=== PATIENT | female | born 1955 | race Caucasian/White ===

== ENCOUNTER 2019-01-19 09:59 | Emergency (ER) | payer BC ==
--- NOTE | 2019-01-19 10:14 | UC ---
Lower Extremity/Ankle HPI - HPI Summary HPI Summary: 63 yo female presents with right hip pain for the last 2-3 months. She tells me that over this time she has noticed right hip joint pain radiating into her right groin and anterior right leg. Pain is worse with hip flexion and with going up stairs. She has been taking naproxen over the last 3-4 days with excellent relief of discomfort. She has been doing physical therapy, which she feels makes her pain worse. She denies specific injury. Denies numbness or tingling. No saddle anesthesia or loss of bowel/bladder control. No dysuria. No back pain. - History of Current Complaint Stated Complaint: RT LEG PAIN Time Seen by Provider: 01/19/19 10:14 Hx Obtained From: Patient Onset/Duration: Gradual Onset Severity Initially: Moderate Severity Currently: Moderate Pain Intensity: 6 Pain Scale Used: 0-10 Numeric Aggravating Factor(s): Standing, Ambulation Alleviating Factor(s): Rest, OTC Meds Able to Bear Weight: Yes - Allergies/Home Medications Allergies/Adverse Reactions: Allergies Allergy/AdvReac Type Severity Reaction Status Date / Time Penicillins Allergy Rash Verified 01/19/19 10:25 Sulfa (Sulfonamide AdvReac Nausea And Verified 01/19/19 10:25 Antibiotics) Vomiting Home Medications: Home Medications 5htp 01/19/19 [History] Acetaminophen [Tylenol] 2 tab PO BID PRN 01/19/19 [History Confirmed 01/19/19] Ascorbic Acid TAB* [Vitamin C TAB*] 01/19/19 [History] Cod Liver Oil 01/19/19 [History] Ibuprofen TAB* [Advil TAB*] 2 tab PO Q6H PRN 01/19/19 [History Confirmed ] Magnesium 01/19/19 [History] NK [No Home Medications Reported] 01/19/19 [History Confirmed 01/19/19] Naproxen Sodium [Naproxen 220 mg] 2 tab PO BID PRN 01/19/19 [History Confirmed 01/19/19] Potassium 01/19/19 [History] Prasterone (Dhea) [Dhea] 01/19/19 [History] Turmeric 01/19/19 [History] [place] Bark/Salicin [[place] Bark Powder] 01/19/19 [History] PMH/Surg Hx/FS Hx/Imm Hx - Additional Past Medical History Additional PMH: None - Surgical History Surgical History: Yes Surgery Procedure, Year, and Place: tubal - Family History Known Family History: Positive: Hypertension - Social History Lives: With Family Alcohol Use: Occasionally Substance Use Type: None Smoking Status (MU): Never Smoked Tobacco Review of Systems All Other Systems Reviewed And Are Negative: Yes Constitutional: Positive: Negative Skin: Positive: Negative Respiratory: Positive: Negative Cardiovascular: Positive: Negative Neurovascular: Positive: Negative Musculoskeletal: Positive: Other: - Right hip pain Neurological: Positive: Negative Psychological: Positive: Negative Physical Exam - Summary Physical Exam Summary: GENERAL: NAD. WDWN. No pain distress. SKIN: No rashes, sores, lesions, or open wounds. NECK: Supple. FROM. Nontender. No lymphadenopathy. CHEST: CTAB. No r/r/w. No accessory muscle use. Breathing comfortably and in no distress. CV: RRR. Without m/r/g. Pulses intact. Cap refill <2seconds MSK: NTTP right trochanter or right hip joint. Pain with flexion of right hip. Negative SLR. Positive GUMARO for right hip/groin pain. Strength 5/5 B/L LEs including dorsiflexion and plantar flexion. FROM B/L LEs. No edema. NEURO: Alert. Sensations intact B/L LEs L3-S1. Reflexes intact PSYCH: Age appropriate behavior. Triage Information Reviewed: Yes Vital Signs: Vital Signs: Temp Pulse Resp BP Pulse Ox 98.3 F 58 16 148/83 98 01/19/19 10:19 01/19/19 10:19 01/19/19 10:19 01/19/19 10:19 01/19/19 10:19 Vital Signs Reviewed: Yes Lower Extremity Course/Dx - Course Course Of Treatment: XR: IMPRESSION: MILD BILATERAL OSTEOARTHRITIC CHANGE IN THE HIPS. IF THE PATIENT'S SYMPTOMS PERSIST CONSIDER MR IMAGING. Suspect overuse injury vs arthritis. Advised to continue resting and taking naproxen. Will refer her to Orthopedics for further evaluation as I believe she may benefit from steroid injections. - Differential Dx/Diagnosis Provider Diagnosis: Right hip pain Discharge - Sign-Out/Discharge Documenting (check all that apply): Patient Departure All imaging exams completed and their final reports reviewed: Yes - Discharge Plan Condition: Stable Disposition: HOME Patient Education Materials: Hip Pain (ED) Referrals: No Primary Care Phys,NOPCP [Medical Doctor] - Jose A Hicks MD [Medical Doctor] - As Soon As Possible Additional Instructions: If you develop a fever, shortness of breath, chest pain, new or worsening symptoms - please call your PCP or go to the ED immediately. Your blood pressure was high at todays visit. Please see your primary provider within 4 weeks for recheck and re-evaluation. Your Hip X-Ray appears normal today. Your hip pain seems related to arthritis or bursitis of the joint. I recommend that you call Orthopedics at the number below to schedule an appointment for further evaluation. Continue taking the naproxen as directed for discomfort - Billing Disposition and Condition Condition: STABLE Disposition: Home
[2019-01-19 10:25] VITALS: BP 148/83
== END 2019-01-19 11:02 | disposition home or self-care (01) ==
LOC: UCEAST 09:59
DX: M25.551 Pain in right hip (principal); Z88.0 Allergy status to penicillin; Z88.2 Allergy status to sulfonamides
CPT/HCPCS: 99201; G0463

== ENCOUNTER → 2019-04-27 05:41 | Day surgery (SDC) | payer BC ==
[~2019-04-27 05:41] MED LIST: Buffered Lidocaine 1% SYRIN* 1 ML/SYRINGE INTRADERM ONE; Bupivacaine 0.25% SDV PF* 10 ML VIAL INJ ONE; Dexamethasone IV* 4 MG/ML 1 ML (4 MG) IV SLOW PU ONE; Dexamethasone IV* 4 MG/ML 1 ML (4 MG) ONE; DiMENhydriNATE IV* 50 MG/ML VIAL IV PUSH PRN; EPHEDrine (Pressors)* 50 MG/ML VIAL ONE; Famotidine IV* 10 MG/ML 2 ML (20 mg) IV ONE; Famotidine IV* 10 MG/ML 2 ML (20 mg) ONE; HYDROcodone/ACETAMIN 5-325 MG* 1 TAB PO PRN; Ketorolac INJ* 30 MG/ML 1 ML VIAL IV PRN; Lactated Ringers 1000 ML Bag* 1,000 ML IV SCH; Lidocaine 2% PF * 5 ML VIAL ONE; Midazolam* 1 MG/ML 5 ML VIAL (5 MG) ONE; Naloxone* 0.4 MG/ML 1 ML VIAL IV PRN; Ondansetron INJ* 2 MG/ML VIAL ONE; Propofol* 10 MG/ML 20 ML BTL ONE; Rocuronium* 10 MG/ML VIAL ONE; Sugammadex * 200 MG/2 ML VIAL IV PUSH ONE; fentaNYL* 50 MCG/ML 2 ML VIAL (100 MCG VIAL) IV PRN; fentaNYL* 50 MCG/ML 2 ML VIAL (100 MCG VIAL) ONE; oxyCODONE/Acetamin 5/325 MG* TAB PO PRN
[2019-04-27 09:50] VITALS: BP 140/91
--- NOTE | 2019-04-28 01:52 | OP ---
CC: Dr. Joel Spence; [facility] * DATE OF OPERATION: 04/27/19 - [facility] DATE OF : 53 SURGEON: Dr. Davison. CO-SURGEON: Dr. Spence. PRE-OP DIAGNOSES: Complex left ovarian cyst and umbilical hernia. POST-OP DIAGNOSES: Complex left ovarian cyst and umbilical hernia. OPERATIVE PROCEDURE: Open repair, umbilical hernia. ESTIMATED BLOOD LOSS: Minimal. IV FLUIDS: Crystalloid. SPECIMEN FOR THIS PROCEDURE: None. DRAINS: None. COMPLICATIONS: None. COUNTS: Instrument, needle, and sponge counts correct. DESCRIPTION OF PROCEDURE: The patient was brought to the operating room and placed on the table in supine. Sequential compression devices were placed on both lower extremities. General anesthesia was administered. Dozier catheter was placed. She was positioned and padded appropriately, prepped and draped in the usual sterile fashion. The patient was found to have an umbilical hernia and Dr. Spence requested that I perform umbilical hernia repair. After local anesthetic was infiltrated into the periumbilical skin, a curvilinear infraumbilical incision was created and sharp and blunt dissections were used to dissect out the umbilical stalk, which was divided from the anterior abdominal wall, and a 1 cm umbilical hernia containing omentum was identified. The omentum was reduced. The edges of the hernia defect were cleaned back to healthy fascia and 2 interrupted 0 Vicryl sutures were placed in order to close the hernia transversely. However, this was used as the access for the laparoscopic portion of the procedure. After entering into the abdomen, a 12 mm blunt port point was placed. As dictated in Dr. Spence's report, the laparoscopic inspection was performed. Adhesions of the left ovary to the pelvic side wall were noted and so I also completed laparoscopic adhesiolysis with sharp dissection, without energy. After freeing the ovary, the salpingo- oophorectomy was performed as dictated by Dr. Spence. At the conclusion of the procedure, the umbilical hernia defect was closed by tying down the 0 Vicryl sutures and then the umbilical stalk was reapproximated to the anterior abdominal wall with 3-0 Vicryl. The skin incision was closed with 4-0 Monocryl in subcuticular fashion and DermaFlex was applied. Remaining portion of the procedure is as dictated by Dr. Spence. [id number]/[facility] #: [id number] [facility]ITAL[facility]
--- NOTE | 2019-04-28 03:30 | OP ---
CC: [facility]; [facility] * DATE OF OPERATION: 04/27/19 - [facility] DATE OF : 53 SURGEON AND CO-SURGEONS: Dr. Spence Left salpingo-oophorectomy, and Dr. Davison Umbilical hernia repair. ANESTHESIOLOGIST: Dr. Gauthier. ANESTHESIA: General endotracheal anesthesia. PRE-OP DIAGNOSES: Complex left ovarian mass, umbilical hernia. POST-OP DIAGNOSES: Complex left ovarian mass, umbilical hernia. OPERATIVE PROCEDURE: Laparoscopic left salpingo-oophorectomy and Dr. Davison performed an umbilical hernia repair and lysis of adhesions. ESTIMATED BLOOD LOSS: Minimal, less than 50 cc. URINE OUTPUT: 300 cc clear urine. FINDINGS: The patient had an umbilical hernia containing fat. Please refer to Dr. Davison' note for the repair of the umbilical hernia. The uterus was midline. The uterus appeared small. The patient is status post bilateral tubal ligation. Right ovary appeared normal. The left ovary appeared to be 3 to 4 cm in size. There were adhesions of the left ovary to the bowel which Dr. Davison lysed. COMPLICATIONS: None. COUNTS: Sponge, lap, and needle count were x2. PATHOLOGY SPECIMEN: Left ovary and fallopian tube. The patient was brought to the recovery room awake and in stable condition. DESCRIPTION OF PROCEDURE: The patient was brought to the operating room and general anesthesia was found to be adequate. The patient was prepped and draped in the usual sterile fashion in the dorsal supine position after a Dozier catheter had been placed under sterile conditions. Time out was performed. A 10 mm skin incision was made in the infraumbilical fold. Dr. Davison dissected out an umbilical hernia, please refer to his dictation for dissecting the hernia. Stay sutures were placed. The 10 mm laparoscope was placed. The abdomen was insufflated. A 5 mm skin incision was made approximately 2cm above the symphysis pubic in the midline. A 5mm ttrocar and sleeve were placed under direct visualization. 5 mm incision was made in the left lower quadrant and the trocar was placed under direct visualization. Dr. Davison lysed the adhesions of the left ovary to the bowel. The uteroovarian ligament was incised using the LigaSure. The infundibulopelvic ligament was incised using the LigaSure. The left ovary and the left fallopian tube were placed in the Endobag. There was no spillage of any content. There was no ascites visualized. The Endobag was brought to the 10 mm infraumbilical port and removed, sent to Pathology. The pelvis was examined. Excellent hemostasis was visualized. The umbilical site was closed by Dr. Davison. The two 5 mm sites were closed with 4-0 Monocryl in a subcuticular fashion and the Dermabond was applied. Dozier catheter was removed at the conclusion of the surgery, clear urine noted. The patient was brought to the recovery room awake and in stable condition. [id number]/[facility] #: [id number] [facility] SYSTEM[facility]
== END | disposition home or self-care (01) ==
LOC: OR 05:41
PROVIDERS: ATTEND Obstetrics & Gynecology
DX: D27.1 Benign neoplasm of left ovary (principal); K42.9 Umbilical hernia without obstruction or gangrene; Z88.0 Allergy status to penicillin; Z88.1 Allergy status to other antibiotic agents; M06.9 Rheumatoid arthritis, unspecified; Z87.891 Personal history of nicotine dependence; F10.21 Alcohol dependence, in remission
CPT/HCPCS: 88305; J1100; J2250; J2405; J2704; J3010; J3490

== ENCOUNTER 2019-05-16 13:00 | Inpatient (IN) | payer BC ==
--- NOTE | 2019-06-01 10:04 | HP ---
HISTORY AND PHYSICAL: DATE OF ADMISSION/SURGERY: 06/08/19 DATE OF OFFICE VISIT: 05/31/19 SURGEON: Sheron Thomas MD * (DICTATED BY NIKO BERGMAN) PROCEDURE: Right total hip arthroplasty. CHIEF COMPLAINT: Right hip pain. HISTORY OF PRESENT ILLNESS: Ms. Luke is a 64-year-old female with severe end- stage osteoarthritis of the right hip. She has failed conservative treatment, elected to proceed with the right total hip arthroplasty. PAST MEDICAL HISTORY: History of hepatitis C, treated. PAST SURGICAL HISTORY: Tubal ligation, oophorectomy. CURRENT MEDICATIONS: 1. Meloxicam 15 mg a day. 2. DHEA. 3. Vitamin D3. 4. Selenium. 5. B complex. 6. Vitamin C. 7. Turmeric. 8. Magnesium. 9. Cetirizine 5 mg daily. 10. Potassium 75 mg daily. 11. 5-HTP. 12. Iron 325 daily. ALLERGIES: PENICILLIN, SULFA, ADHESIVES. FAMILY HISTORY: Diabetes and stroke. SOCIAL HISTORY: She is a 64-year-old female. She lives with her . She does not smoke or use drugs or alcohol. REVIEW OF SYSTEMS: A complete 14 point review of systems was reviewed with the patient, it was positive for history of hepatitis C, infection, which was treated. She denies history of DVT, HIV or anesthesia problems. PHYSICAL EXAMINATION GENERAL: She is well developed, well nourished, in no acute distress. VITAL SIGNS: She stands 65 inches tall, weighs 180 pounds, blood pressure is 122/84, her heart rate is 71. HEENT: Normocephalic, atraumatic. NECK: Supple. No palpable lymph nodes. PULMONARY: Lungs are clear to auscultation bilaterally. CARDIO: Regular rate and rhythm. Strong S1, S2. ABDOMEN: Soft, nontender, nondistended. NEUROLOGICAL: She is alert and oriented x3. MUSCULOSKELETAL: Right lower extremity: Skin is intact. There are no open wounds or abrasions. She walks with an antalgic type gait, favoring her right hip. She has decreased internal and external rotation of the right hip. She is able to dorsiflex and plantarflex. She has a 2+ dorsalis pedis pulses. Intact sensation. ASSESSMENT AND PLAN: Ms. Luke is a 64-year-old female with endstage osteoarthritis of the right hip. She has failed conservative treatment, and elected to proceed with a right total hip arthroplasty. The surgery is scheduled for 06/08/[address] Thomas discussed the risks and benefits of the surgery at today's visit and all of her questions were answered. She will follow up with Dr. Thomas in 2 weeks after the surgery. NIKO BERGMAN [id number]/[facility] #: [id number] MTDDre
[2019-06-07] MEDS ORDERED: Buffered Lidocaine 1% SYRIN* 1 ML/SYRINGE INTRADERM ONE (10:33)
[2019-06-08] MEDS ORDERED: Tranexamic Acid 1,000 MG in NS 0.9% 50 ML* (outpatient use) IV SCH ×2
[2019-06-08] MEDS ORDERED: Dexamethasone IV* 4 MG/ML 1 ML (4 MG) IV SLOW PU ONE (06:00)
[2019-06-08] MEDS ORDERED: Gabapentin CAP(*) 300 MG PO ONE (06:00)
[2019-06-08] MEDS ORDERED: Lactated Ringers 1000 ML Bag* 1,000 ML IV SCH (06:00)
[2019-06-08] MEDS ORDERED: Famotidine IV* 10 MG/ML 2 ML (20 mg) IV ONE (06:00)
[2019-06-08] MEDS ORDERED: Acetaminophen IV 1GM/100ML * 1,000 MG/100 ML VIAL IVPB ONE (06:00)
[2019-06-08] MEDS ORDERED: celeCOXIB CAP* 200 MG PO ONE (06:00)
--- OUTSIDE RECORDS SUMMARY | 2019-06-08 08:55 | XMS REPORT | Continuity of Care Document ---
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 ETOH Use Quit Using Alcohol. Recreational Drug Use Has Used In Past Allergies, Adverse Reactions, Alerts Active Allergies Reaction Severity Comments Date sulfa vomiting 12/10/2009 Penicillin hives 12/10/2009 Latex 05/19/2019 Medications Active Medications SIG Qnty Indications Ordering Provider Date Meloxicam 1 by mouth daily Unknown 15mg Tablets as needed with food Immunizations Description No Information Available Vital Signs Date Vital Result Comment 05/19/2019 8:42am Weight 179.00 lb Height 65 inches 5'5" BMI (Body Mass Index) 29.8 kg/m2 BP Systolic 116 mmHg BP Diastolic 80 mmHg Heart Rate 71 /min O2 % BldC Oximetry 95 % Body Temperature 97.8 F Combes Score 9 Neck Circumference in inches 14 Pain Level 0 12/10/2009 3:58pm Weight 164.00 lb Height 65 inches 5'5" BMI (Body Mass Index) 27.3 kg/m2 BP Systolic 120 mmHg BP Diastolic 60 mmHg Heart Rate 51 /min O2 % BldC Oximetry 98 % Body Temperature 98.1 F Results Description No Information Available Procedures Description No Information Available Medical Devices Description No Information Available Encounters Description No Information Available Assessments Description No Information Available Plan of Treatment No Information Available Functional Status Description No Information Available Mental Status Description No Information Available Referrals Description No Information Available
--- OUTSIDE RECORDS SUMMARY | 2019-06-08 08:55 | XMS REPORT | Continuity of Care Document ---
:1955 External Reference #:[id number] Author Name Sheron Thomas M.D. (transmitted by agent of provider Ekaterina Lazcano) Address [address] [place] [address] [place] [address] Care Team Providers Name Role Phone Alicia Martines MD - Care Team Information Crutcher Helper [phone] Family Medicine Problems Active Problems Provider Date Localized, primary osteoarthritis of the pelvic Sheron Thomas M.D. Onset: 07/2018 region and thigh Social History Type Date Description Comments Sex Unknown Cigarette Use Pack Years - 16 ETOH Use Denies alcohol use Is a member of AA Tobacco Use Start: Unknown End: Patient is a former Unknown smoker Smoking Status Reviewed: 05/31/19 Patient is a former smoker Exercise Exercises sporadically Type/Frequency Allergies, Adverse Reactions, Alerts Active Allergies Reaction Severity Comments Date Penicillin Rash 01/27/2019 Sulfa Antibiotics Nausea 01/27/2019 Adhesive 01/27/2019 Medications Active Medications SIG Qnty Indications Ordering Date Provider Meloxicam 1 by mouth every 30tabs M25.551 Sheron Thomas, 01/27/2019 15mg Tablets day M.D. Cane use for 1units M25.551 Sheron Thomas, 01/27/2019 Counts Include [facility] - r M.D. hip pain Dhea Unknown Vitamin D3 Unknown Selenium Unknown B Complex once a day Unknown Tablets Vitamin C 1 by mouth every Unknown 1000mg Tablets day Turmeric take two Unknown 500mg Capsules capsule/tablet daily by mouth Magnesium 1-2 by mouth Unknown 300mg Capsules every day Cetirizine HCL take one tab Unknown 5mg Chewtabs daily as needed for allergic symptoms Potassium otc 1 t by mouth Unknown 75mg Tablets d nature made 5-HTP Unknown Capsules Iron 1 by mouth every Unknown 325(65Fe) mg Tablets day PS 100 Brain Function Unknown Phosphatidylserine History Medications Oxycodone-Acetaminophen one tablet by 12tabs Joel Spence 04/18/2019 - 5-325mg Tablets mouth q6 hours 05/04/2019 as needed strong pain Medications Administered in Office Medication SIG Qnty Indications Ordering Provider Date Depomedrol 40MG Sheron Thomas M.D. 02/08/2019 Injection Immunizations Description No Information Available Vital Signs Date Vital Result Comment 05/31/2019 8:36am Height 65 inches 5'5" Weight 180.00 lb Heart Rate 71 /min BP Systolic 122 mmHg BP Diastolic 84 mmHg Body Temperature 97.8 F Pain Level 2 BMI (Body Mass Index) 30.0 kg/m2 05/04/2019 2:33pm Height 65 inches 5'5" Weight 180.00 lb Heart Rate 66 /min BP Systolic 150 mmHg BP Diastolic 88 mmHg O2 % BldC Oximetry 97 % BMI (Body Mass Index) 30.0 kg/m2 Results Test Acquired Date Facility Test Result H/L Range Note Surgical 04/27/2019 [facility] Surgical SEE RESULT [address] [place] [address] [phone] PDFReport SEE IMAGE Laboratory test 03/31/2019 [facility] Cancer Ag (CA 6 U/mL < 46 [address] [place] [address] [phone] He4 Ovarian Cancer Marker 56 pmol/L <=140 3 Xray 02/08/2019 [facility] In House Inj/Aspir Major JT Or Bursa W/ US <pending> 1 SEE RESULT BELOW Name: ERICA LUKE : [address]: Joel Spence MD Acct: [id number] Unit: [id number] AGE: 63 Location: OR Re04/27/19 SEX: F Status: REG SDC SPEC: [id number] CANDACE: 04/27/19- [facility] DR: Joel Spence MD REQ: [id number] RECD: 04/27/19 STATUS: SOUT _ ORDERED: LEVEL 4 FINAL DIAGNOSIS Left ovary and fallopian tube, salpingo-oophorectomy: -- 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 -- Inactive ovarian tissue. -- Fallopian tube tissue with no significant pathologic abnormality. 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 The outer surface is smooth to corrugated to focally bulbous and shaggy jerome-pink. There is a 2.4 x 2.3 x 1.3 cm unilocular cyst containing thin clear fluid. The remaining cut surface is rubbery jerome-pink. There is a 1.1 cm previously removed segment from the fallopian tube, 1.2 cm from the proximal end. The remaining diameter averages 0.6 cm. The serosa is smooth to wrinkled jerome-pink with multiple paratubal cysts ranging from 0.1 cm to 0.8 cm. The cut surface is unremarkable. Transition Social Worker sections, five cassettes. Signed by and Reported on: Kelvin Martinez MD 07/16 1535 END OF REPORT DEPARTMENT OF PATHOLOGY, [address] [place] [address] Kelvin Martinez M.D. Director [facility] # [id number] 2 ADDITIONAL INFORMATION The testing method is an electrochemiluminescence assay manufactured by [employer] and performed on the Paul system. Values obtained with different assay methods or kits may be different and cannot be used interchangeably. Test results cannot be interpreted as absolute evidence for the presence or absence of malignant disease. Test Performed by: [facility] [place] [address] Physical Security Specialist: Jagjit Palumbo M.D. Ph.D.; CLIA# [id number] 3 ADDITIONAL INFORMATION The testing method is an electrochemiluminescence assay manufactured by [employer] and performed on the Modular or Paul system. Values obtained with different assay methods or kits may be different and cannot be used interchangeably. Test results cannot be interpreted as absolute evidence for the presence or absence of malignant disease. Test Performed by: [place] [address] Physical Security Specialist: Jagjit Palumbo M.D. Ph.D.; CLIA# [id number] Procedures Date Code Description Status 04/27/2019 63424 Laparoscopy, RMVL Adnexal Structures Completed (Oophorectomy/Salpingectomy) 04/27/2019 91307 Repair Hernia Umbilical > 5 Yrs, Reducible Completed 02/08/2019 47042 Inj/Aspir Major JT Or Bursa W/ US Completed Medical Devices Description No Information Available Encounters Type Date Location Provider Dx Diagnosis Office Visit 04/18/2019 [facility] Joel Spence MD D39.12 Neoplasm of 10:00a [facility] uncertain behavior of left ovary R93.89 Abnormal findings on dx imaging of oth body structures Office [facility] N83.202 Unspecified Clinic [facility] ovarian cyst, left side R93.89 Abnormal findings on dx imaging of oth body structures Office Visit 02/15/2019 10:30a [facility] Sheron Thomas M25.551 Pain in right at [facility].D. hip M16.11 Unilateral primary osteoarthritis, right hip Office Visit 02/08/2019 8:45a Eloise Thomas M25.551 Pain in right at [facility].D. hip M16.11 Unilateral primary osteoarthritis, right hip Office Visit 01/27/2019 2:15p Eloise Thomas M25.551 Pain in right at [facility].D. hip M16.11 Unilateral primary osteoarthritis, right hip Assessments Date Code Description Provider 05/31/2019 M25.551 Pain in right hip Sheron Thomas M.D. 05/31/2019 M16.11 Unilateral primary osteoarthritis, right Sheron Thomas M.D. hip 05/04/2019 D27.1 Benign neoplasm of left ovary Joel Spence MD 05/04/2019 K42.9 Umbilical hernia without obstruction or Joel Spence MD gangrene 04/27/2019 K42.9 Umbilical hernia without obstruction or Jose Davison MD, FACS gangrene 04/27/2019 R93.89 Abnormal findings on diagnostic imaging of Joel Spence MD other specified body structures 04/27/2019 N83.8 Other noninflammatory disorders of ovary, Joel Spence MD fallopian tube and broad ligament 04/21/2019 D39.12 Neoplasm of uncertain behavior of left Joel Spence MD ovary 04/18/2019 D39.12 Neoplasm of uncertain behavior of left Joel Spence MD ovary 04/18/2019 R93.89 Abnormal findings on diagnostic imaging of Joel Spence MD other specified body structures 03/31/2019 N83.202 Unspecified ovarian cyst, left side Joel Spence MD 03/31/2019 R93.89 Abnormal findings on diagnostic imaging of Joel Spence MD other specified body structures 03/30/2019 M25.551 Pain in right hip Sheron Thomas M.D. 03/30/2019 M16.11 Unilateral primary osteoarthritis, right Sheron Thomas M.D. hip 03/06/2019 M25.551 Pain in right hip Sheron Thomas M.D. 03/06/2019 M16.11 Unilateral primary osteoarthritis, right Sheron Thomas M.D. hip 02/15/2019 M25.551 Pain in right hip Sheron Thomas M.D. 02/15/2019 M16.11 Unilateral primary osteoarthritis, right Sheron Thomas M.D. hip 02/08/2019 M25.551 Pain in right hip Sheron Thomas M.D. 02/08/2019 M16.11 Unilateral primary osteoarthritis, right Sheron Thomas M.D. hip 01/27/2019 M25.551 Pain in right hip Sheron Thomas M.D. 01/27/2019 M16.11 Unilateral primary osteoarthritis, right Sheron Thomas M.D. hip Plan of Treatment Future Appointment(s):06/26/2019 2:15 pm - Sheron Thomas M.D. at [facility] at Cfapow8806/08/2019 10:30 am - RIAN Bernal at [facility] at Agkwyy8206/08/2019 10:30 am - NIKO Cardona at [facility] at Uhkjrl4506/08/2019 10:30 am - Sheron Thomas M.D. at [facility] at Fcbxwc0205/31/2019 - Sheron Thomas M.D.M25.551 Pain in right hipFollow up:Follow up: 2 weeks after ucbghnbC38.11 Unilateral primary osteoarthritis, right hip Functional Status Description No Information Available Mental Status Description No Information Available Referrals Description No Information Available
--- OUTSIDE RECORDS SUMMARY | 2019-06-08 08:55 | XMS REPORT | Continuity of Care Document ---
:1955 External Reference #:[id number] Author Name Joel Spence MD (transmitted by agent of provider Dorothy Barbosa) Address [address] [place] [address] Care Team Providers Name Role Phone Alicia Martines MD - Care Team Information Advertising Sales Associate Family Medicine Problems Active Problems Provider Date Localized, primary osteoarthritis of the pelvic Sheron Thomas M.D. Onset: 07/2018 region and thigh Social History Type Date Description Comments Sex Unknown Cigarette Use Pack Years - 16 ETOH Use Denies alcohol use Is a member of AA Tobacco Use Start: Unknown End: Patient is a former Unknown smoker Smoking Status Reviewed: 05/04/19 Patient is a former smoker Exercise Exercises sporadically Type/Frequency Allergies, Adverse Reactions, Alerts Active Allergies Reaction Severity Comments Date Penicillin Rash 01/27/2019 Sulfa Antibiotics Nausea 01/27/2019 Adhesive 01/27/2019 Medications Active Medications SIG Qnty Indications Ordering Date Provider Oxycodone-Acetaminophen one tablet by 12tabs Joel Spence, 04/18/2019 5-325mg mouth q6 hours as MD Tablets needed strong pain Meloxicam 1 by mouth every 14tabs M25.551 Sheron Thomas, 01/27/2019 15mg Tablets day M.D. Cane use for 1units M25.551 Sheron Thomas, 01/27/2019 Misc ambulation - r M.D. hip pain Dhea [...] day PS 100 Brain Function Unknown Phosphatidylserine Medications Administered in Office Medication SIG Qnty Indications Ordering Provider Date Depomedrol 40MG Sheron Thomas M.D. 02/08/2019 Injection Immunizations Description No Information Available Vital Signs Date Vital Result Comment 05/04/2019 2:33pm Height 65 inches 5'5" Weight 180.00 lb Heart Rate 66 /min BP Systolic 150 mmHg BP Diastolic 88 mmHg O2 % BldC Oximetry 97 % BMI (Body Mass Index) 30.0 kg/m2 04/18/2019 10:05am Height 65 inches 5'5" Weight 181.12 lb Heart Rate 58 /min BP Systolic 127 mmHg BP Diastolic 73 mmHg O2 % BldC Oximetry 98 % BMI (Body Mass Index) 30.1 kg/m2 Results Test Acquired Date Facility Test Result H/L Range Note Surgical 04/27/2019 [facility] Surgical SEE RESULT [address] [address] [phone] PDFReport SEE IMAGE Laboratory test 03/31/2019 [facility] Cancer Ag (CA 6 U/mL < 46 [address] [place] [address] [phone] He4 Ovarian Cancer Marker 56 pmol/L <=140 3 Xray 02/08/2019 [employer] In House Inj/Aspir Major JT Or Bursa W/ US <pending> 1 SEE RESULT BELOW Name: ERICA LUKE : [address]: Joel Spence MD Acct: [id number] Unit: [id number] AGE: 63 Location: OR Re04/27/19 SEX: F Status: REG SDC SPEC: [id number] CANDACE: 04/27/19- SUBM DR: Joel Spence MD REQ: [id number] RECD: 04/27/19 STATUS: SOUT _ ORDERED: LEVEL [...] 0.8 cm. The cut surface is unremarkable. Regulatory Compliance Coordinator sections, five cassettes. Signed by and Reported on: Kelvin Martinez MD 07/16 1535 END OF REPORT DEPARTMENT OF PATHOLOGY, [address] [place] [address] Kelvin Martinez M.D. Director CHARLA # [id number] 2 ADDITIONAL INFORMATION The testing method is an electrochemiluminescence assay manufactured by [employer] and performed on the Paul system. Values obtained with different assay methods or kits may be different and cannot be used interchangeably. Test results cannot be interpreted as absolute evidence for the presence or absence of malignant disease. Test Performed by: [facility] [address] Animal Technician: Jagjit Palumbo M.D. Ph.D.; CLIA# [id number] 3 ADDITIONAL INFORMATION The testing method is an electrochemiluminescence assay manufactured by [employer] and performed on the Modular or Paul system. Values obtained with different assay methods or kits may be different and cannot be used interchangeably. Test results cannot be interpreted as absolute evidence for the presence or absence of malignant disease. Test Performed by: [place] [address] Animal Technician: Jagjit Palumbo M.D. Ph.D.; CLIA# [id number] Procedures Date Code Description Status 04/27/2019 38125 Laparoscopy, RMVL Adnexal Structures Completed (Oophorectomy/Salpingectomy) 02/08/2019 74312 Inj/Aspir Major JT Or Bursa W/ US Completed Medical Devices Description No Information Available Encounters Type Date Location Provider Dx Diagnosis Office Visit 03/31/2019 [facility] Joel Spence, N83.202 Unspecified ovarian 10:30a Clinic [facility] MD cyst, left side R93.89 Abnormal findings on dx imaging of oth body structures Office Visit 02/15/2019 10:30a [facility] Sheron Thomas, M25.551 Pain in right at [place] M.D. hip M16.11 Unilateral primary osteoarthritis, right hip Office Visit 02/08/2019 8:45a [facility] Sheron Thomas, M25.551 Pain in right at [place] M.D. hip M16.11 Unilateral primary osteoarthritis, right hip Office Visit 01/27/2019 2:15p [facility] Sheron Thomas M25.551 Pain in right at [place] M.D. 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 03/30/2019 M16.11 Unilateral primary osteoarthritis, right hip Sheron Thomas M.D. 03/06/2019 M25.551 Pain in right hip Sheron Thomas M.D. 03/06/2019 M16.11 Unilateral primary osteoarthritis, right hip Sheron Thomas M.D. 02/15/2019 M25.551 Pain in right hip Sheron Thomas M.D. 02/15/2019 M16.11 Unilateral primary osteoarthritis, right hip Sheron Thomas M.D. 02/08/2019 M25.551 Pain in right hip Sheron Thomas M.D. 02/08/2019 M16.11 Unilateral primary osteoarthritis, right hip Sheron Thomas M.D. 01/27/2019 M25.551 Pain in right hip Sheron Thomas M.D. 01/27/2019 M16.11 Unilateral primary osteoarthritis, right hip Sheron Thomas M.D. Plan of Treatment Future Appointment(s):05/29/2019 9:00 am - [facility] at [facility]/08/2019 12:30 pm - Sheron Thomas M.D. at [facility] Functional Status Description No Information Available Mental Status Description No Information Available Referrals Description No Information Available
--- OUTSIDE RECORDS SUMMARY | 2019-06-08 08:55 | XMS REPORT | Continuity of Care Document ---
:1955 External Reference #:[id number] Author Name Sheron Thomas M.D. (transmitted by agent of provider Ekaterina Rachel) Address [address] [place] [address] [place] [address] Care Team Providers Name Role Phone Alicia Martines MD - Care Team Information Superintendent House Family Medicine Problems Active Problems Provider Date Localized, primary osteoarthritis of the pelvic Sheron Thomas M.D. Onset: 07/2018 region and thigh Social History Type Date Description Comments Sex Unknown Cigarette Use Pack Years - 16 ETOH Use Denies alcohol use Is a member of AA Tobacco Use Start: Unknown End: Patient is a former Unknown smoker Smoking Status Reviewed: 04/18/19 Patient is a former smoker Exercise Exercises [...] use for 1units M25.551 [facility] [...] Available Vital Signs Date Vital Result Comment 04/18/2019 10:05am Height 65 inches 5'5" Weight 181.12 lb Heart Rate 58 /min BP Systolic 127 mmHg BP Diastolic 73 mmHg O2 % BldC Oximetry 98 % BMI (Body Mass Index) 30.1 kg/m2 03/31/2019 10:38am Height 65 inches 5'5" Weight 177.00 lb Heart Rate 74 /min BP Systolic 122 mmHg BP Diastolic 78 mmHg BMI (Body Mass Index) 29.5 kg/m2 Results Test Acquired Date Facility Test Result H/L Range Note Laboratory test 03/31/2019 [facility] Cancer Ag (CA 6 U/mL < 46 [address] [place] [address] [phone] He4 Ovarian Cancer Marker 56 pmol/L <=140 2 Xray 02/08/2019 [facility] In House Inj/Aspir Major JT Or Bursa W/ US <pending> 1 ADDITIONAL INFORMATION The testing method is an electrochemiluminescence assay manufactured by [employer] and performed on the Paul system. Values obtained with different assay methods or kits may be different and cannot be used interchangeably. Test results cannot be interpreted as absolute evidence for the presence or absence of malignant disease. Test Performed by: [facility] [address] [place] [address] Culinary Chef: Jagjit Palumbo M.D. Ph.D.; CLIA# [id number] 2 ADDITIONAL INFORMATION The testing method is an electrochemiluminescence assay manufactured by [employer] and performed on the Modular or Paul system. Values obtained with different assay methods or kits may be different and cannot be used interchangeably. Test results cannot be interpreted as absolute evidence for the presence or absence of malignant disease. Test Performed by: [facility] [address] [place] [address] Culinary Chef: Jagjit Palumbo M.D. Ph.D.; CLIA# [id number] Procedures Date Code Description Status 04/27/2019 41951 Laparoscopy, RMVL Adnexal Structures Completed (Oophorectomy/Salpingectomy) 02/08/2019 16633 Inj/Aspir Major JT Or Bursa W/ US Completed Medical Devices Description No Information Available Encounters Type Date Location Provider Dx Diagnosis Office Visit 03/31/2019 [facility] Joel Spence, N83.202 Unspecified ovarian 10:30a Clinic [facility] cyst, left side R93.89 Abnormal findings on dx imaging of oth body structures Office Visit 02/15/2019 10:30a [facility] Sheron Thomas M25.551 Pain in right at [facility] hip M16.11 Unilateral primary osteoarthritis, right hip Office Visit 02/08/2019 8:45a [facility] M25.551 Pain in right at [facility] hip M16.11 Unilateral primary osteoarthritis, right hip Office Visit 01/27/2019 2:15p [facility] M25.551 Pain in right at [facility] hip M16.11 Unilateral primary osteoarthritis, right hip Assessments Date Code Description Provider 04/27/2019 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 at [facility]06/08/2019 12:30 pm - Sheron Thomas M.D. at [facility]05/04/2019 2:30 pm - Joel Spence MD at [facility]04/18/2019 - Joel Spence MDD39.12 Neoplasm of uncertain behavior of left ovaryComments:Discussed DDx includes benign and malignant ovarian neoplasms. Offered referral to [facility] Onc[facility] for second opinion, consider surgery with [facility]. If is a malignant neoplasm, will need another surgery with [facility]. Small, unilateral, asymptomatic cyst with nl tumor markers strongly favors benign. Prefers to proceed with surgery at [facility]. Reviewed risks/benefits (see office sheet)Prescription forPercocet 5/325mg sent to Pharmacy. One tablet po q6 hours prn string pain #12 sent to Pharmacy. Taking Meloxicam prn hip pain. I filled put paper work last week for work, plan out of work x 2 weeks.When recovered , plans Hip replacement with Functional Status Description No Information Available Mental Status Description No Information Available Referrals Description No Information Available
--- OUTSIDE RECORDS SUMMARY | 2019-06-08 08:56 | XMS REPORT | Continuity of Care Document ---
:1955 External Reference #:[id number] Author Name Sheron Thomas M.D. (transmitted by agent of provider Ekaterina Rachel) Address [address] [place] [address] [place] [address] Care Team Providers Name Role Phone Alicia Martines MD - Care Team Information Manager Android Family Medicine Problems Active Problems Provider Date [...] use for 1units M25.551 Sheron Thomas, 01/27/2019 [facility] r M.D. hip pain [...] Result H/L Range Note Laboratory test 03/31/2019 [facility] Cancer Ag (CA 6 U/mL < 46 [address] [place] [address] [phone] He4 Ovarian Cancer Marker 56 pmol/L <=140 2 Xray 02/08/2019 [facility] Inj/Aspir Major JT Or Bursa [...] absence of malignant disease. Test Performed by: [facility] [address] [place] [address] Elementary Instructional Coach: Jagjit Palumbo M.D. Ph.D.; CLIA# [id number] 2 ADDITIONAL INFORMATION The testing method is an electrochemiluminescence assay manufactured by [employer] and performed on the Modular or Paul system. Values obtained with different assay methods or kits may be different and cannot be used interchangeably. Test results cannot be interpreted as absolute evidence for the presence or absence of malignant disease. Test Performed by: [facility] [address] [place] [address] Elementary Instructional Coach: Jagjit Palumbo M.D. Ph.D.; CLIA# [id number] Procedures Date Code Description Status 04/27/2019 42225 Laparoscopy, RMVL Adnexal Structures Completed (Oophorectomy/Salpingectomy) 02/08/2019 39459 Inj/Aspir Major JT Or Bursa W/ US Completed Medical Devices Description No Information Available Encounters Type Date Location Provider Dx Diagnosis Office Visit 03/31/2019 [facility] Joel Spence, N83.202 Unspecified ovarian 10:30a [facility] cyst, left side R93.89 Abnormal findings on dx imaging of oth body structures Office Visit 02/15/2019 10:30a [facility] Sheron Thomas M25.551 Pain in right at [facility] hip M16.11 Unilateral primary osteoarthritis, right hip Office Visit 02/08/2019 8[facility]a [facility] M25.551 Pain in right at [facility] hip M16.11 Unilateral primary osteoarthritis, right hip Office Visit 01/27/2019 2[facility] M25.551 Pain in right at [facility] hip M16.11 Unilateral primary osteoarthritis, right hip Assessments Date Code Description Provider 04/27/2019 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 at [facility]06/08/2019 12:30 pm - Sheron Thomas M.D. at [facility]05/04/2019 2:30 pm - Joel Spence MD at [email or web address]04/18/2019 - Joel Spence MDD39.12 Neoplasm of uncertain behavior of left ovaryComments:Discussed DDx includes benign and malignant ovarian neoplasms. Offered referral to [facility] for second opinion, consider surgery with [facility]. If is a malignant neoplasm, will need another surgery with [facility]. Small, unilateral, asymptomatic cyst with nl tumor markers strongly favors benign. Prefers to proceed with surgery at [facility]. Reviewed risks/benefits (see office sheet)Prescription forPercocet 5/325mg [...]
--- OUTSIDE RECORDS SUMMARY | 2019-06-08 08:56 | XMS REPORT | Summary of Care ---
:1955 Author Organization [facility] Address [address] [facility] [place] [address] Care Team Providers Name Role Phone Alicia Martines MD Primary Care Provider Reason for Visit Reason Comments Physical pre op remove lt ovary in 2 days Encounter Details Date Type Department Care Team Description 04/25/2019 Office Visit Ban Martines Preoperative examination (Primary Dx); Practice Alicia Vines MD Ovarian mass, left; [address] Right hip pain; [place] [address] [place] [address] Tear of right acetabular labrum, sequela [phone] Allergies Active Allergy Reactions Severity Noted Date Comments Penicillins Rash 07/21/2011 Sulfa Antibiotics GI Reaction 04/04/2014 documented as of this encounter (statuses as of 04/25/2019) Medications Medication Sig Dispensed Refills Start Date End Date Status Misc Natural Products Take by 0 Active (WHITE WILLOW BARK PO) mouth. cetirizine (ZYRTEC) 10 MG Take 1 Tab by 0 02/12/2018 Active Oral Tab mouth DAILY. Phenylephrine HCl 5 MG Take 1 Tab by 0 02/12/2018 Active Oral Tab mouth EVERY EIGHT HOURS NEEDED. Nutritional Supplements Take by 0 Active (DHEA PO) mouth. Cholecalciferol (D3-1000) Take by 0 Active 1000 units Oral Cap mouth. B Complex Vitamins (B Take by 0 Active COMPLEX 100 PO) mouth. Phosphatidylserine 100 MG Take by 0 Active Oral Cap mouth. Magnesium Hydroxide Take by 0 Active (MAGNESIA PO) mouth. Potassium 75 MG Oral Tab Take by 0 Active mouth. fluticasone (FLONASE) 50 [place] 2 Sprays 0 Active MCG/ACT Nasal in nose DAILY. SuspensionIndications: Allergic rhinitis, unspecified seasonality, unspecified trigger Blood Pressure Monitoring 1 Device by 1 Kit 0 05/16/2018 Active Does not apply Does not apply KitIndications: Other route headache syndrome DIRECTED. meloxicam (MOBIC) 15 MG Take 15 mg by 0 Active Oral Tab mouth. documented as of this encounter (statuses as of 04/25/2019) Active Problems Problem Noted Date Pain in joint involving right pelvic region and thigh 01/19/2019 Hx of hepatitis C 12/08/2017 Overview: treatment completed,infection resolved. 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 Sex Assigned at Date Recorded Not on file Job Start Date Occupation Industry Not on file Not on file Not on file Travel History Travel Start Travel End No recent travel history available. documented as of this encounter Last Filed Vital Signs Vital Sign Reading Time Taken Comments Blood Pressure 124/90 04/25/2019 1:05 PM EDT Pulse 63 04/25/2019 1:05 PM EDT Temperature 36.4 04/25/2019 1:05 PM EDT C (97.6 F) Respiratory Rate - - Oxygen Saturation 95% 04/25/2019 1:05 PM EDT Inhaled Oxygen Concentration - - Weight 80.7 kg (178 lb) 04/25/2019 1:05 PM EDT Height 166.4 cm (5' 5.5") 04/25/2019 1:05 PM EDT Body Mass Index 29.17 04/25/2019 1:05 PM EDT documented in this encounter Patient Instructions Patient InstructionsAlicia Martines MD - 04/25/2019 1:00 PM EDTI did your preoperative exam today I ordered laboratory tests and will send you results. Proceed with surgery as planned. Avoid all non-steroidal anti-inflammatory drugs and aspirin for 1 week prior to surgery Avoid vitamin C also as it can thin the blood a bit. No food or liquids the morning of surgery. Call surgeon if develop respiratory illness, fever, or other illness. Letter sent to requesting surgeon listed above. documented in this encounter Progress Notes Alicia Martines MD - 04/25/2019 1:00 PM EDT PATIENT: Erica Luke : 1955 DATE OF SERVICE: 04/25/2019 Subjective SUBJECTIVE: Eriac Luke is a 63-y.o. female who presents to the office today for a preoperative consultation at the request of Dr Thomas, who will perform a right total hip replacement on 06/08/19. In addition she is having her left ovary and tube removed with [place] 04/27/19 for a left ovarian mass. The ovarian cyst was found on MRI of her hips. Patient complains of cardiac symptoms: none. Patient denies cardiac symptoms: chest pain, dyspnea, palpitations, syncope, lower extremity edema. She had left leg swelling after a long drive in January, but it was resolved by the time she was seenby the PA in January. No ultrasound was done and she denies pain or swelling since. Past history of pulmonary embolism/deep vein thrombosis: no. There is a history of bleeding complications: no Past history of anesthetic problem: No, but some nova lino makes her anxious ( the epinephrine?). Exercise capacity: Can you walk 2 blocks on level ground, or carry 2 bags of groceries up 2 flights of stairs? Yes Count the number of risk factors in the revised Fink cardiac risk index. ( RCRI): 1 High risk procedure: eg vascular surgery, any open intraperitoneal or intrathoracic 0 History of ischemic heart disease (history of AR or a positive exercise test , current complaint of chest pain considered to be secondary to myocardial ischemia, use of nitrate therapy, or ECG with pathological Q waves; do not count prior coronary revascularization procedure unless one of the other criteria for ischemic heart disease is present) 0 Hx of CHF, either systolic or diastolic 0 History of cerebrovascular disease (TIA or Stroke) 0 Diabetes mellitus requiring treatment with insulin 0 Preoperative serum creatinine >2.0 mg/dl The risk of cardiac , nonfatal myocardial infarction, and nonfatal cardiac arrest according to the number of above risk predictors is estimated to be: One risk factor - 1.0 percent (95% CI: 0.5 - 1.4) Screening for sleep apnea: Stop-Bang 1 Snoring: Do you snore loudly (louder than talking or heard through closed doors)? 1 Tired: Do you often feel tired, fatigued, or sleepy during the day? 0 Observed: Has anyone observed you stop breathing during your sleep? 0 Pressure: Do you have or are you being treated for high blood pressure? 0 BMI: >35 kg/m2? 1 Age: >50? 0 Neck circumference: >40 cm? 0 Gender: Male? Medium risk She reports a borderline negative sleep study in the past 14 years. Screening for Alzheimer's 1. During the past 12 months, have you experienced confusion or memory loss that is happening more often or is getting worse? No 2. During the past 7 days, did you need help with others to perform everyday activities such as eating, getting dressed, grooming, bathing, walking, or using the toilet? No 3. During the past 7 days, did you need help from others to take care of things such as laundry and housekeeping, banking, shopping, using the telephone, food preparation, transportation, or taking your own medications? No If positive, the minicog was administered. See Scanned tab. Current active problems are: Patient Active Problem List Diagnosis Date Noted Pain in joint involving right pelvic region and thigh 01/19/2019 Hx of hepatitis C 12/08/2017 treatment completed,infection resolved. Past Medical History: Diagnosis Date Postmenopausal Viral hepatitis Hepatitis C, treated with Harvoni 11/2016 Past Surgical History: Procedure Laterality Date COLONOSCOPY 2009 relates no f/u was needed. COLONOSCOPY DIAGNOSTIC LAPAROSCOPIC TUBAL LIGATION 1979 Family History Problem Relation Age of Onset Diabetes Mother Stroke Mother Diabetes Brother foot ambutated Hypertension Brother Alcohol/Drug Brother No Known Problems Brother No Known Problems Sister Psychiatry Child Alcohol/Drug Child Diabetes Maternal Grandmother Heart Paternal Grandfather 80 [place] Current Outpatient Medications Medication Sig B Complex Vitamins (B COMPLEX 100 PO) Take by mouth. Blood Pressure Monitoring Does not apply Kit 1 Device by Does not apply route DIRECTED. cetirizine (ZYRTEC) 10 MG Oral Tab Take 1 Tab by mouth DAILY. Cholecalciferol (D3-1000) 1000 units Oral Cap Take by mouth. fluticasone (FLONASE) 50 MCG/ACT Nasal Suspension [place] 2 Sprays in nose DAILY. Magnesium Hydroxide (MAGNESIA PO) Take by mouth. meloxicam (MOBIC) 15 MG Oral Tab Take 15 mg by mouth. Misc Natural Products (WHITE WILLOW BARK PO) Take by mouth. Nutritional Supplements (DHEA PO) Take by mouth. Phenylephrine HCl 5 MG Oral Tab Take 1 Tab by mouth EVERY EIGHT HOURS NEEDED. Phosphatidylserine 100 MG Oral Cap Take by mouth. Potassium 75 MG Oral Tab Take by mouth. No current facility-administered medications for this visit. Allergies Allergen Reactions Penicillins Rash Sulfa Antibiotics GI Reaction Social History Socioeconomic History Marital status: Spouse name: Not on file Number of children: Not on file Years of education: Not on file Highest education level: Not on file Occupational History Not on file Social Needs Financial resource strain: Not on file Food insecurity: Worry: Not on file Inability: Not on file Transportation needs: Medical: Not on file Non-medical: Not on file Tobacco Use Smoking status: Former Smoker Packs/day: 2.00 Years: 35.00 Pack years: 70.00 Types: Cigarettes Last attempt to quit: 09/18/2002 Years since quittin.6 Smokeless tobacco: Never Used Substance and Sexual Activity Alcohol use: No Comment: recovering alcoholic late 2001.---had etoh issues for 20 years. Drug use: No Comment: marijuana in past. Sexual activity: Yes Partners: Male Lifestyle Physical activity: Days per week: Not on file Minutes per session: Not on file Stress: Not on file Relationships Social connections: Talks on phone: Not on file Gets together: Not on file Attends latter day service: Not on file Active member of club or organization: Not on file Attends meetings of clubs or organizations: Not on file Relationship status: Not on file Intimate partner violence: Fear of current or ex partner: Not on file Emotionally abused: Not on file Physically abused: Not on file Forced sexual activity: Not on file Other Topics Concern Back Care Not Asked Bike Helmet Not Asked Blood Transfusions No Caffeine Concern Yes Comment: low caf, 1-2/d Exercise Yes Comment: jazzercise 3x/week Hobby Hazards Not Asked International Travel Not Asked Service Not Asked Occupational Exposure Not Asked Seat Belt Not Asked Self-Exams Not Asked Sleep Concern Not Asked Special Diet Not Asked Stress Concern Not Asked Weight Concern Not Asked Social History Narrative 1 daughter 1974----2 step 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 Pets: 2 dogs/4 cats. Immunization History Administered Date(s) Administered Influenza (IM) Preservative Free 03/21/2015, 04/04/2017, 03/22/2019 TDAP Vaccine 12/08/2017 She has recently seen Dr Spence and cyst removal is planned later this week for left ovarian mass. Ca-125 on 03/31/19 was normal at 4, HE4 56 normal Ultrasound 03/08/19 showed: Office Visit on 05/16/2018 Component Date Value Ref Range Status Lyme Disease Antibody 05/16/2018 <0.90 <=0.90 Ratio Final Glucose 05/16/2018 95 70 - 99 mg/dL Final BUN 05/16/2018 27* 7 - 17 mg/dL Final Creatinine 05/16/2018 0.9 0.7 - 1.2 mg/dL Final Sodium 05/16/2018 144 134 - 145 mmol/L Final Potassium 05/16/2018 4.4 3.5 - 5.1 mmol/L Final Chloride 05/16/2018 106 98 - 107 mmol/L Final CO2 05/16/2018 28 22 - 30 mmol/L Final Calcium 05/16/2018 9.4 8.3 - 10.1 mg/dL Final eGFR 05/16/2018 >60 See Interpretation Below ml/min/1.73ml Sq Final Estimated GFR Interpretation: Above 60ml/min/1.73m2 = Normal Renal Function 30-59 ml/min/1.73m2 = Stage 3 Chronic Kidney Disease 15-29 ml/min/1.73m2 = Stage 4 Chronic Kidney Disease Less than 15 ml/min/1.73m2 = Stage 5 Chronic Kidney Disease The GFR value is calculated using the Modification of Diet in Renal Disease ( MDRD) Study Equation which can be found at: https://www.kidney.org/content/kcwv-ojwft-yayikrhg BUN/Creatinine Ratio 05/16/2018 30* 6 - 22 Final Anion Gap 05/16/2018 10 3 - 11 mmol/L Final Lab Results Component Value Date CHOL 199 12/28/2017 TRIG 66 12/28/2017 HDL 47 (L) 12/28/2017 LDL 139 (H) 12/28/2017 LDLHDLRATIO 3.0 12/28/2017 CHOLHDLRATIO 4.2 12/28/2017 REVIEW OF SYSTEMS: General ROS: negative for - chills or fever, unexpected weight changes ENT ROS: negative for - headaches, nasal congestion, nasal discharge, sinus pain , sore throat or visual changes Respiratory ROS: negative for - cough, hemoptysis or shortness of breath Cardiovascular ROS: negative for - chest pain, dyspnea on exertion, edema or palpitations Gastrointestinal ROS: no abdominal pain, change in bowel habits, or black or bloody stools Genito-Urinary ROS: no dysuria, trouble voiding, or hematuria Neuro: denies headache, focal weakness, numbness Psych: Denies depression Has right hip pain. The patient has dentures: Yes, has a partial The last dental visit was: 02/2019 The patient has hearing aids: No Objective OBJECTIVE: BP 124/90 (BP Location: Right arm, Patient Position: Sitting) | Pulse 63 | Temp 97.6 F (36.4 C) (Tympanic) | Ht 5' 5.5" (1.664 m) | Wt 178 lb ( 80.7 kg) | SpO2 95% | ? No | BMI 29.17 kg/m Mallampati score: 3 Physical Examination: General appearance - alert, well appearing, and in no distress Mental status - alert, oriented to person, place, and time, normal mood, behavior, speech, dress, motor activity, and thought processes Eyes - pupils equal and reactive, extraocular eye movements intact, sclera anicteric Ears - bilateral TM's and external ear canals normal Neck - supple, no cervical or supraclavicular adenopathy, carotids upstroke normal bilaterally, no bruits, thyroid exam: thyroid is normal in size without nodules or tenderness, no neck masses palpated. Chest/Lungs - clear to auscultation, no wheezes, rales or rhonchi, symmetric air entry, good aeration Heart - normal rate, regular rhythm, normal S1, S2, no murmurs, rubs, clicks or gallops Abdomen - soft, non tender on palpation, nondistended, no masses or hepatosplenomegaly, bowel soundsnormal, normal to percussion, no guarding or rebound. No costervertebral angle tenderness Neurological - alert, oriented, normal speech, no gross focal findings or movement disorder noted Extremities - dorsalis pedis pulses normal, no pedal edema, no clubbing or cyanosis. No calf pain. ASSESSMENT: No contraindications to planned surgery 1. Preoperative examination 2. Ovarian mass, left 3. Right hip pain 4. Tear of right acetabular labrum, sequela EKG today: NSR, rate 63, normal. Clinical predictors: The RCRI score is: 1% Respiratory risk: The patient has pre-existing risks of none The risk of airway problems is medium based on the mallampati score and the Stop-bang score. Anticoagulation: The patient is not on anti-platelet agents. Recommendations regarding stopping these medications before surgery: NA Plan PLAN: She declines laboratory tests and UA/UC and lab work today, says she thinks the surgeon will want itcloser to surgery and at [facility]. Orders are in if needed. 1. Patient requires endocarditis prophylaxis: no. 2. Recommend perioperative beta-sharonda: not applicable. 3. Patient requires perioperative deep vein thrombosis prophylaxis: Yes, for her hip surgery, per surgical protocol. 4. General preoperative instructions for patient. Proceed with surgery as planned. Avoid all non-steroidal anti-inflammatory drugs and aspirin for 1 week prior to surgery No food or liquids the morning of surgery. Call surgeon if develop respiratory illness, fever, or other illness. Letter sent to requesting surgeon listed above. Written preoperative instructions given.. Author: Alicia Martines MD 04/25/2019 13:38 documented in this encounter Plan of Treatment Name Type Priority Associated Diagnoses Order Schedule AMBULATORY 12 LEAD EKG EKG Routine Preoperative examination Ordered: 2018 (GLOBAL) URINALYSIS (LAB) Lab Routine Preoperative examination Expected: 04/25/2019 (Approximate), Expires: 10/22/2019 URINE CULTURE (C&S) Lab Routine Preoperative examination 1 Occurrences starting 04/25/2019 until 10/22/2019 COMPREHENSIVE METABOLIC Lab Routine Preoperative examination Expected: PANEL (Approximate), Expires: 04/25/2020 CBC NO DIFFERENTIAL Lab Routine Preoperative examination Expected: 2018 (Approximate), Expires: 04/25/2020 Health Maintenance Due Date Last Done Comments ZOSTER IMMUNIZATION SERIES 2004 (1 of 2) LUNG CANCER SCREENING 2009 MAMMOGRAM (SCREENING) 12/28/2018 12/28/2017, 02/15/2014, 02/13/2014 (Declined), Additional history exists DIABETES SCREENING 05/16/2019 05/16/2018, 12/28/2017, 12/28/2017, Additional history exists DEPRESSION SCREENING 12/01/2019 11/30/2018, 10/01/2017 COLONOSCOPY SCREENING 12/02/2020 12/02/2010 LIPID DISORDER SCREENING 12/28/2022 12/28/2017 HPV IMMUNIZATION SERIES Aged Out No longer eligible based on patient's age to complete this topic MENINGOCOCCAL VACCINE IMM Aged Out No longer eligible based on patient's age to complete this topic PNEUMOCOCCAL 0-64 YRS Aged Out No longer eligible based on patient's age to complete this topic documented as of this encounter Results Not on filedocumented in this encounter Visit Diagnoses Diagnosis Preoperative examination - Primary Preoperative examination, unspecified Ovarian mass, left Right hip pain Pain in joint, pelvic region and thigh Tear of right acetabular labrum, sequela documented in this encounter Insurance Payer Benefit Plan / Subscriber ID Effective Dates Phone Address Type Group BCBS NATIONAL BCBS NATIONAL xxxxxxxxxxxx 2018-Present Blue Cross/Blue Shield Guarantor Name Account Type Relation to Date of Phone Billing Patient Address Erica Luke Personal/Family 1955 [phone] [address] [facility] (Home) [facility] [phone] [place], [place] (Work) [id number] documented as of this encounter
[2019-06-08] MEDS ORDERED: Acetaminophen IV 1GM/100ML * 100 ML ONE ×2 (09:36→13:37)
[2019-06-08] MEDS ORDERED: celeCOXIB CAP* 200 MG ONE (09:36)
[2019-06-08] MEDS ORDERED: Famotidine IV* 10 MG/ML 2 ML (20 mg) ONE (09:36)
[2019-06-08] MEDS ORDERED: Gabapentin CAP(*) 300 MG ONE (09:36)
[2019-06-08] MEDS ORDERED: Dexamethasone IV* 4 MG/ML 1 ML (4 MG) ONE (09:36)
[2019-06-08] MEDS ORDERED: ceFAZolin 2 GM in NS PREMIX(*) 0 GM/0 ML BAG IVPB ONE (09:37)
[2019-06-08] MEDS ORDERED: Clindamycin 900 MG/D5W BAG(*) 900 MG/50 ML BAG IVPB ONE (09:39)
[2019-06-08] MEDS ORDERED: KETAMINE HCL* 50 MG/ML 10 ML VIAL ONE (10:05)
[2019-06-08] MEDS ORDERED: Ondansetron INJ* 2 MG/ML VIAL ONE (10:05)
[2019-06-08] MEDS ORDERED: Midazolam* 1 MG/ML 5 ML VIAL (5 MG) ONE (10:05)
[2019-06-08] MEDS ORDERED: Propofol* 10 MG/ML 20 ML BTL ONE (10:05)
[2019-06-08] MEDS ORDERED: fentaNYL* 50 MCG/ML 5 ML VIAL (250 MCG VIAL) ONE (10:05)
[2019-06-08] MEDS ORDERED: Atracurium* 10 MG/ML 10 ML VIAL ONE (10:06)
[2019-06-08] MEDS ORDERED: ROPIVACAINE 5 MG/ML 30 ML BTL (0.5%) ONE ×2 (10:32→12:49)
[2019-06-08] MEDS ORDERED: Ropivacaine (OR use only) 2 MG/ML 10 ML ONE (10:33)
[2019-06-08] MEDS ORDERED: Scopolamine 1.5 mg* PATCH TRANSDERM PRN (12:02)
[2019-06-08] MEDS ORDERED: Ondansetron INJ* 2 MG/ML VIAL IV PRN ×2 (12:02→13:36)
[2019-06-08] MEDS ORDERED: HYDROmorphone INJ1* 1 MG/ML SYRINGE IV PRN (12:02)
[2019-06-08] MEDS ORDERED: Naloxone* 0.4 MG/ML 1 ML VIAL IV PRN (12:02)
[2019-06-08] MEDS ORDERED: DiMENhydriNATE IV* 50 MG/ML VIAL IV PUSH PRN (12:02)
[2019-06-08] MEDS ORDERED: diPHENhydraMINE PO* 25 MG PO PRN (13:36)
[2019-06-08] MEDS ORDERED: Ondansetron TAB* 4 MG PO PRN (13:36)
[2019-06-08] MEDS ORDERED: Cyclobenzaprine TAB* 10 MG PO PRN (13:36)
[2019-06-08] MEDS ORDERED: Polyethylene Glycol 3350* 17 GM PACKET PO PRN (13:36)
[2019-06-08] MEDS ORDERED: Magnesium Hydroxide LIQ* 30 ML UDC PO PRN (13:36)
[2019-06-08] MEDS ORDERED: Morphine INJ* 2 MG/ML 1 ML SYRINGE (TWO MG - NEW SYRINGE VERSION) IV PRN (13:36)
[2019-06-08] MEDS ORDERED: Ondansetron ODT TAB* 4 MG PO PRN (13:36)
[2019-06-08] MEDS ORDERED: diPHENhydraMINE IV* 50 MG/ML 1 ml VIAL (BENADRYL) IV PRN (13:36)
[2019-06-08] MEDS ORDERED: fentaNYL* 50 MCG/ML 2 ML VIAL (100 MCG VIAL) ONE ×2 (13:37→14:00)
[2019-06-08] MEDS: fentaNYL* 50 MCG/ML 2 ML VIAL (100 MCG VIAL) IV PRN ×4 (13:38→14:34)
[2019-06-08] MEDS ORDERED: POTASSIUM 99 MG PO SCH (14:00)
[2019-06-08] MEDS ORDERED: diPHENhydraMINE IV* 50 MG/ML 1 ml VIAL (BENADRYL) ONE (14:34)
--- NOTE | 2019-06-08 14:45 | PN ---
Progress Note - Progress Note Date of Service: 06/08/19 Note: resting comfortably in recovery. pain well controlled; able to DF/PF, 2+ DP pulse and intact sensation; dressing c/d/i; abduction pillow in place
[2019-06-08] MEDS: Lactated Ringers 1000 ML Bag* 1,000 ML IV SCH (15:20)
[2019-06-08] MEDS: Acetaminophen TAB* 325 MG PO SCH ×2 (16:04→21:36)
[2019-06-08] MEDS: oxyCODONE/Acetamin 5/325 MG* TAB PO PRN ×2 (17:10→21:10)
[2019-06-08] MEDS ORDERED: HYDROXYTRYPTOPHAN 100 MG PO SCH (18:00)
[2019-06-08] MEDS ORDERED: Cetirizine* 10 MG TAB PO SCH (18:00)
--- NOTE | 2019-06-08 18:11 | OP ---
Operative Report - Blank - Operative Report Date of Operation: 06/08/19 Note: DAVIS MENDEZ 1955 Date Of Surgery: 06/08/19 Sheron Thomas MD Manager Trade: Cristina POPE did help throughout the procedure with preparation of the hip, wound retraction, manipulation of the hip, and wound closure. 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 Hardware used: This is uncemented [place] total hip arthroplasty hardware for the femur a size 4 accolade II with a 127 neck angle femoral component, for the acetabulum a size 46C trident II tritanium cluster hole shell, a single 15 mm screw, for the insert a size 32C trident X3 polyethylene insert, and for the femoral head a size 32 - 4 biolox cermaic V40 femoral head. Brief history/Indication: DAVIS MENDEZ was known in clinic and had a history of severe right hip pain. She failed conservative treatment with anti- inflammatories, pain pills, intra-articular injections and physical therapy. She elected to undergo right total hip arthroplasty due to continued pain and decreased quality of life. Radiographs showed severe end stage osteoarthritis of the hip with bone on bone contact. Informed consent was obtained from the patient. She understood the risks of surgery included but were not limited to: bleeding, infection, damage to nearby structures, intraoperative fracture, nerve palsy, failure of the hardware, early loosening, stiffness or loss of motion, dislocation, leg length discrepancy, anesthesia complications, stroke, heart attack, blood clot and . She wished to proceed. Intra-Operative findings: Intraoperatively the patient was noted to have severe loss of cartilage of the acetabulum and femoral head. She had a shallow dysplastic acetabulum with minimal superior and anterior wall. Description of the Procedure: DAVIS MENDEZ was identified in the preanesthesia unit. Her right hip was marked as the correct operative side. Informed consent was signed and placed in the chart. The patient was taken to the operating room and placed under anesthesia without complication. A austin catheter was placed. The patient was placed on the peg board with all bony prominences well padded. The right lower extremity was prepped and draped in the usual sterile fashion. Preoperative time-out was made to correctly identify the patient, side and site. Appropriate intraoperative antibiotics were given within one hour of incision. A standard posterior incision was made and carried sharply down to the lateral fascia. A new 10 blade was used to make an incision in the fascia in line with the skin incision. A charnley retractor was placed. The piriformis and conjoined tendons were identified and elevated off the posterolateral femur using electrocautery. These were tagged with number 5 Ethibond. Next electrocautery was used to make a posterolateral capsular flap and this was tagged with number 5 Ethibonds. The hip was carefully dislocated. Lesser trochanter to the center of the femoral head was measured at 52 mm. The oscillating saw was used to make the femoral neck cut. The femoral head was carefully removed. The femur was retracted anteriorly and the acetabular retractors were placed. Long-handled knife was used to sharply remove any remaining labrum from the acetabular rim. The acetabulum was sequentially reamed up to a size 46. A bleeding subchondral bone bed was obtained. A trial liner was placed and had excellent fit and stability. A 46C cup with a single screw was placed and had excellent stability with appropriate anteversion and abduction angle. A size 32C liner was impacted into the acetabular shell. The liner was checked for stability and was stable. Next attention was turned to preparation of the femoral canal. A canal finder was used to enter the proximal femur. The femoral canal was sequentially broached up to a size 4 femoral broach trial. A trial neck and 32 - 4 trial femoral head was chosen. Lesser trochanter to center of the femoral head measurement was satisfactory. The hip was reduced and taken through a range of motion. The hip was stable in all positions with good soft tissue tension and appropriate leg lengths. The hip was dislocated and all trials were removed. The final implant chosen was a accolade II size 4. This stem was impacted into the femoral canal without difficulty. The stem was stable with appropriate anteversion. The femoral head chosen was a 32 - 4 ceramic head. The head was impacted onto the femoral neck without difficulty. The final lesser trochanter to center of the femoral head measurement was satisfactory. The hip was reduced and taken through a range of motion. The hip was stable in all positions with good soft tissue tension and appropriate leg lengths. The hip was copiously irrigated with sterile saline. The previously tagged capsule and tendons were repaired to the posterolateral femur through two trochanteric drill holes. The lateral fascia layer was closed using number 1 vicryls. The rest of the incision was closed in a layered fashion using 0 and 2-0 vicryls. The skin was closed using 3-0 monocryl suture and Dermabond. Sterile adaptic, 4x4s and paper tape was used to cover the incision. The patients anesthesia was reversed without difficulty. She was taken to the PACU in stable condition. Intended weight-bearing will be as tolerated with posterior hip precautions.
[2019-06-08] MEDS: Clindamycin 600 MG/D5W BAG(*) 600 MG/50 ML BAG IV SCH (19:29)
[2019-06-08] MEDS ORDERED: MAGNESIUM MALATE PO SCH (21:00)
[2019-06-08] MEDS ORDERED: [UNRECOGNIZED DRUG - OTHER] PO SCH (21:00)
[2019-06-08] MEDS: Magnesium Hydroxide LIQ* 30 ML UDC PO SCH (21:11)
[2019-06-08] MEDS: Docusate CAP* 100 MG PO SCH (21:11)
[2019-06-08] MEDS: oxyCODONE TAB* 5 MG TAB PO PRN (23:09)
[2019-06-09] MEDS: traMADol TAB* 50 MG PO PRN ×3 (00:58→12:52)
[2019-06-09] MEDS: Lactated Ringers 1000 ML Bag* 1,000 ML IV SCH (01:05)
[2019-06-09] MEDS: Clindamycin 600 MG/D5W BAG(*) 600 MG/50 ML BAG IV SCH ×2 (03:54→11:14)
[2019-06-09] MEDS: oxyCODONE TAB* 5 MG TAB PO PRN (03:54)
[2019-06-09] MEDS: Acetaminophen TAB* 325 MG PO SCH ×2 (06:42→12:53)
[2019-06-09 07:12] LABS: Hematocrit 35 % (35-47); Hemoglobin 12.3 g/dL (12.0-16.0); Mean Platelet Volume 8.7 fL (7.4-10.4); Platelet Count 190 10^3/uL (150-450)
[2019-06-09 07:29] LABS: BUN/Creatinine Ratio 17.8 (8-20); Calcium 8.8 mg/dL (8.6-10.3); EGFR African American 96.8 (>60)
[2019-06-09] MEDS ORDERED: Vitamin THERAPEUTIC TAB PO SCH (09:00)
[2019-06-09] MEDS ORDERED: SELENIUM PO SCH (09:00)
[2019-06-09] MEDS ORDERED: PRASTERONE 5 MG PO SCH (09:00)
[2019-06-09] MEDS ORDERED: [UNRECOGNIZED DRUG - OTHER] PO SCH (09:00)
[2019-06-09] MEDS ORDERED: Apixaban* 2.5 MG TAB PO SCH (09:00)
[2019-06-09] MEDS: Docusate CAP* 100 MG PO SCH (09:48)
[2019-06-09] MEDS: Magnesium Hydroxide LIQ* 30 ML UDC PO SCH (09:49)
[2019-06-09 11:54] VITALS: BP 126/62
--- NOTE | 2019-06-09 16:30 | DS ---
Orthopedic Discharge Summary - Discharge Summary Date of Admission:06/08/19 Date of Discharge: 06/09 Date of Surgery: 06/08/19 Attending Orthopedic Provider: Sheron Thomas MD Pre-operative Diagnosis: Right hip osteoarthritis Operative Procedure: Right total hip replacement Disposition of Patient: Home Condition of Patient: Stable History: DAVIS MENDEZ is a 64 year old F with years of increasingly severe Right hip pain. Patient has failed conservative management and has elected to undergo a Right total hip replacement Hospital Course: DAVIS was admitted to [facility] on 06/08/19. Patient underwent a Right total hip replacement without complication followed by a brief recovery in PACU and transfer to the Short Stay Surgical Unit in stable condition. Our physical therapy and occupational therapy also participated in this patients care. Post-op day 1: patient was alert and in no acute distress. Dressing was clean, dry and intact. Operative extremity dorsiflexion and plantarflexion intact, sensation intact to light touch distally , DP2+. Dressing was changed, incision was clean, dry and intact. Patient was deemed to be medically and orthopedically stable for discharge. Physical therapy goals were met. The patient was discharged to home in a stable condition. Home Medications Medication Instructions Recorded Confirmed Type 5-Hydroxytryptophan (5-Htp) [5-Htp] 100 mg PO QPM 01/19/19 06/08/19 History Ascorbic Acid TAB* [Vitamin C 1 tab PO BID 01/19/19 06/08/19 History TAB*] Potassium 99 mg PO TID 01/19/19 06/08/19 History Prasterone (Dhea) [Dhea] 5 mg PO QAM 01/19/19 06/08/19 History Turmeric 500 mg PO 1200 01/19/19 06/08/19 History Cetirizine HCl 10 mg PO QPM 04/26/19 06/08/19 History Cholecalciferol (Vitamin D3) 1,000 unit PO QAM 04/26/19 06/08/19 History [Vitamin D3] Magnesium Malate 1 - 2 tab PO BID 04/26/19 06/08/19 History Phosphatidyl Serine 3 cap PO QPM 04/26/19 06/08/19 History [Phosphatidylserine] Raw Iron 1 tab PO QAM 04/26/19 06/08/19 History Selenium 1 cap PO QAM 04/26/19 06/08/19 History diphenhydrAMINE HCl [Benadryl 2 tab PO BEDTIME 04/26/19 06/08/19 History Allergy] Acetaminophen [Tylenol Extra 1 - 2 mg PO BID PRN 06/01/19 06/08/19 History Strength] Cyanocobalamin (Vitamin B-12) 5,000 mcg PO QAM 06/01/19 06/08/19 History [Vitamin B12] [place]-3 Fatty Acids [Super Twin 1,280 mg PO 1200 06/01/19 06/08/19 History Epa-Dha] Raw B Complex 1 tab PO BID 06/01/19 06/08/19 History Apixaban* [Eliquis*] 2.5 mg PO BID tab 06/09/19 Rx traMADol TAB* [Ultram*] 50 mg PO Q6H PRN tab 06/09/19 Rx Discharge Instructions following Orthopedic Surgery: Activity: * Weight Bearing as tolerated * Continue physical therapy and occupational therapy exercises as shown Hip replacements: Continue Hip Precautions- do not cross legs or bend greater than 90 degrees/squat Wound care: * OK to shower on post-op day 3, no bathing, swimming, or submerging wound. * Use gentle soap, pat dry. Cover with gauze, DESHAWN wrap or tape. * Visiting home nurse to do wound checks. Call Orthopedic office for: * Increased drainage * Redness * Increased pain * Fever Go to ER with shortness of breath or chest pain. Diet: * Regular diet * Increase fluids and fiber to prevent constipation. * Continue to use stool softeners, call office if no bowel motion within 48 hours. Medications See Home Medication List in your packet for medications that you should take after discharge. DVT Prophylaxis: Eliquis Dosin.5 mg, 1 tab every 12 hours x 30 days Pain Control: Tramadol Dosin mg 1-2 tabs by mouth every 4-6 hours as needed for pain. Maximum of 10 tabs per day. Antibiotics are required prior to any dental work. FOLLOW UP: Follow up with Dr. Thomas Within 10-14 days, call for appointment Please call our office with any questions or concerns ([phone])
--- NOTE | 2019-06-09 16:34 | PN ---
Progress Note - Progress Note Date of Service: 06/09/19 SOAP: Subjective: Pt seen and examined at bedside. Complains of pain when up walking. Denies CP, SOB, F/C. Vital Signs: Temp Pulse Resp BP Pulse Ox 97.7 F 72 20 126/62 100 06/09/19 11:49 06/09/19 11:49 06/09/19 12:52 06/09/19 11:49 06/09/19 11:49 Laboratory Last Values Hgb 12.3 g/dL (12.0-16.0) 06/09/19 06:57 Hct 35 % (35-47) 06/09/19 06:57 Plt Count 190 10^3/uL (150-450) 06/09/19 06:57 MPV 8.7 fL (7.4-10.4) 06/09/19 06:57 Sodium 137 mmol/L (135-145) 06/09/19 06:57 Potassium 4.0 mmol/L (3.5-5.0) 06/09/19 06:57 Chloride 103 mmol/L (101-111) 06/09/19 06:57 Carbon Dioxide 29 mmol/L (22-32) 06/09/19 06:57 Anion Gap 5 mmol/L (2-11) 06/09/19 06:57 BUN 13 mg/dL (6-24) 06/09/19 06:57 Creatinine 0.73 mg/dL (0.51-0.95) 06/09/19 06:57 Est GFR ( Amer) 96.8 (>60) 06/09/19 06:57 Est GFR (Non-Af Amer) 80.0 (>60) 06/09/19 06:57 BUN/Creatinine Ratio 17.8 (8-20) 06/09/19 06:57 Glucose 113 mg/dL (70-100) H 06/09/19 06:57 Calcium 8.8 mg/dL (8.6-10.3) 06/09/19 06:57 Objective: A&O X3, NAD Dressing changed, incision C/D/I, Calves soft and nontender, No edema, NVI distally Assessment: 64 yo female s/p right TADEO POD #1 Plan: OOB, PT/OT WBAT Pain control DVT prophylaxis - Eliquis 2.5mg bid D/C home today
[2019-06-10] MEDS ORDERED: Bisacodyl SUPP* 10 MG SUPP PR PRN (13:36)
== END 2019-06-09 15:50 | disposition home health service (06) | DRG 301 ==
LOC: AA 06-08 08:53 → SSU 06-08 13:36
PROVIDERS: ADMIT Orthopaedic Surgery Adult Reconstructive Orthopaedic Surgery; ATTEND Orthopaedic Surgery Adult Reconstructive Orthopaedic Surgery
PROC: 0SR904A Replacement of Right Hip Joint with Ceramic on Polyethylene Synthetic Substitute, Uncemented, Open Approach (ICD-10-PCS; principal; 2019-06-08 11:00)
DX: M16.11 Unilateral primary osteoarthritis, right hip (principal); Z86.19 Personal history of other infectious and parasitic diseases; Z79.899 Other long term (current) drug therapy; Z88.0 Allergy status to penicillin; Z88.2 Allergy status to sulfonamides; Z91.048 Other nonmedicinal substance allergy status
CPT/HCPCS: 36415; 80048; 85014; 85018; 85049; 88304; 88311; A9270-GY; C1713; C1776; G8978-GP-CK; G8979-GP-CI; J0690; J1100; J1200; J2250; J2405; J2704; J2795; J3010